=== PATIENT | female | born 1960 | race Caucasian/White ===

== ENCOUNTER → 2024-01-07 | Day surgery (SDC) | payer OTHER ==
[2024-01-03 12:58] VITALS: BP 115/61
[2024-01-03 14:26] LABS: BUN 7 mg/dl (9-23); CHLORIDE 109 mmol/L (98-107); POTASSIUM 3.8 mmol/L (3.4-5.1)
[~2024-01-07] VITALS: Ht 160 cm; Wt 55.3 kg
[~2024-01-07] MED LIST: BUPIVACAINE 0.25% 10 ML VIAL ONE; Bupivacaine Hydrochloride/Ep 10 ML VIAL ONE; Bupivacaine Hydrochloride/Ep2 30 ML VIAL ONE; Dexamethasone Sodium Phospha 20 MG/5 ML VIAL IV ONE; Lactated Ringer's Solution 1,000 ML IV ONE; Lidocaine Hydrochloride 2% 10 ML AMP IM ONE; Midazolam Hydrochloride 2 MG/2 ML VIAL IV ONE; Midazolam Hydrochloride 2 MG/2 ML VIAL ONE; OXYCODONE-ACET1 EAC3 PO; Ondansetron Hydrochloride 4 MG/2 ML VIAL IV ONE; Ondansetron Hydrochloride 4 MG/2 ML VIAL ONE; PROPOFOL 200 MG/20 ML VIAL IV ONE; Phenylephrine Hydrochloride 1 MG/10 ML SYRINGE IV ONE; SEVOFLURANE 250 ML BOT INH ONE; ceFAZolin sodium/sodium chlor 1 GM/10 ML SYR IV ONE; ceFAZolin sodium/sodium chlor 10 ML IV ONE; fentaNYL CITRATE 100 MCG/2 ML VIAL IV ONE
[2024-01-07 09:04] VITALS: BP 101/67
[2024-01-07 11:41] VITALS: BP 111/43
[2024-01-07 11:53] VITALS: BP 124/60
[2024-01-07 12:10] VITALS: BP 128/58
[2024-01-07 12:24] VITALS: BP 120/61
[2024-01-07 12:40] VITALS: BP 127/64
== END | disposition home or self-care (01) ==
LOC: SDC 12-16 14:00
PROVIDERS: ATTEND Orthopaedic Surgery
DX: S83.242A Other tear of medial meniscus, current injury, left knee, initial encounter (principal); M17.12 Unilateral primary osteoarthritis, left knee; J44.9 Chronic obstructive pulmonary disease, unspecified; F41.9 Anxiety disorder, unspecified; E78.5 Hyperlipidemia, unspecified; E78.00 Pure hypercholesterolemia, unspecified; F17.210 Nicotine dependence, cigarettes, uncomplicated; Z90.710 Acquired absence of both cervix and uterus; Z98.890 Other specified postprocedural states; Z79.899 Other long term (current) drug therapy; X58.XXXA Exposure to other specified factors, initial encounter; Y93.89 Activity, other specified; Y92.89 Other specified places as the place of occurrence of the external cause; Y99.8 Other external cause status